=== PATIENT | female | born 1980 | race African-American/Black ===

== ENCOUNTER 2019-03-25 09:04 | Emergency (ER) | payer SELFPAY ==
[~2019-03-25] VITALS: Ht 170.2 cm; Wt 79.0 kg
[2019-03-25 09:45] VITALS: BP 142/78
== END 2019-03-25 09:52 | disposition home or self-care (01) ==
LOC: ER 09:04
DX: Z11.59 Encounter for screening for other viral diseases (principal)
CPT/HCPCS: 99281; Z7610

== ENCOUNTER 2019-10-08 06:18 | Emergency (ER) | payer BC ==
[~2019-10-08] VITALS: Ht 172.7 cm; Wt 82.0 kg
[2019-10-08 06:53] VITALS: BP 137/74
== END 2019-10-08 07:38 | disposition left against medical advice (07) ==
LOC: ER 06:18
DX: M54.9 Dorsalgia, unspecified (principal); M79.602 Pain in left arm; M79.601 Pain in right arm; Z53.21 Procedure and treatment not carried out due to patient leaving prior to being seen by health care provider
CPT/HCPCS: 93005

== ENCOUNTER 2024-08-29 18:10 | Emergency (ER) | payer SELFPAY ==
[~2024-08-29] VITALS: Ht 172.7 cm; Wt 82.0 kg
[2024-08-29 18:16] VITALS: BP 220/85; RESP 16; TEMP 98.4; O2SAT 100
[2024-08-29 18:17] VITALS: PULSE 85; O2SAT 99
[2024-08-29 20:07] LABS: BASOPHILS % 0.8 % (0.0-2.0); EOSINOPHILS % 1.3 % (0.0-5.0); HEMATOCRIT. 40.9 % (36.0-48.0); HEMOGLOBIN. 14.2 g/dL (12.0-16.0); LYMPHOCYTES % 14.4 % (20.0-50.0); MEAN CORPUSCULAR HGB CONC 34.7 g/dL (31.0-37.0); MEAN CORPUSCULAR VOLUME 92.3 fL (81.0-99.0); MEAN PLATELET VOLUME 7.1 fl (7.4-10.4); MONOCYTES % 8.3 % (2.0-8.0); NEUTROPHILS % 75.2 % (40.0-76.0); PLATELET 211 x1000/uL (130-400); RED BLOOD CELL COUNT 4.44 mill/uL (4.2-5.4); RED CELL DISTRIBUTION WIDTH 13.7 % (11.6-14.6); WHITE BLOOD COUNT 11.1 x1000/uL (4.5-11.0)
[2024-08-29 20:18] LABS: HCG SCREEN NEGATIVE
[2024-08-29 20:22] LABS: CHLORIDE 109 mEq/L (98-107); SODIUM 140 mEq/L (136-145)
[2024-08-29 20:23] LABS: CARBON DIOXIDE 26 mEq/L (21-32)
[2024-08-29 20:24] LABS: CALCIUM 9.7 mg/dL (8.7-10.4)
[2024-08-29 20:28] LABS: CREATININE 0.9 mg/dL (0.6-1.0); GLUCOSE 126 mg/dL (70-105)
[2024-08-29 20:29] LABS: TROPONIN I HIGH SENSITIVITY 15 ng/L (3.0-34); UREA NITROGEN BLOOD 15 mg/dL (9-23)
[2024-08-29 20:30] LABS: ALANINE AMINOTRANSFERASE < 7 IU/L (10-49); ALBUMIN 4.4 g/dL (3.2-4.8); ASPARTATE AMINOTRANSFERASE 15 IU/L (<34)
[2024-08-29 20:31] LABS: BILIRUBIN DIRECT 0.3 mg/dL (<=3.0); BILIRUBIN TOTAL 0.9 mg/dL (0.1-1.0); PROTEIN TOTAL 7.4 g/dL (6.0-8.3)
[2024-08-29] MEDS: LIDOCAINE 5% PATCH TOP SCH (20:45)
[2024-08-29] MEDS: METHOCARBAMOL 750MG TABLET PO SCH (20:45)
[2024-08-29] MEDS: IBUPROFEN 400MG TABLET PO ONE (20:45)
== END 2024-08-29 19:40 | disposition left against medical advice (07) ==
LOC: ER 18:10
DX: R07.9 Chest pain, unspecified (principal); F17.210 Nicotine dependence, cigarettes, uncomplicated; F12.90 Cannabis use, unspecified, uncomplicated; Z98.890 Other specified postprocedural states
CPT/HCPCS: 36415; 71045; 80048; 80076; 83880; 84484; 84703; 85025; 93005; 99285